=== PATIENT | female | born 1970 | race Two or more races ===

== ENCOUNTER 2016-12-31 20:23 | Emergency (ER) | payer MEDICAID ==
[~2016-12-31] VITALS: Ht 149.9 cm; Wt 115.2 kg
[2016-12-31 21:21] LABS: Basophils # (auto) 0.1 uL; Mean Corpuscular Volume 76.3 fL (80.0-100.0); Mean Platelet Volume 8.5 fL (6.9-10.8); Monocytes # (auto) 0.9 uL
[2016-12-31 21:23] LABS: Basophils % (auto) 1.3 % (0.0-2.0); Eosinophils # (auto) 0.3 uL; Hematocrit 38.3 % (36.0-46.0); Hemoglobin 12.5 g/dL (12.2-16.2); Lymphocytes # (auto) 3.2 uL; Lymphocytes % (auto) 37.1 % (10.0-50.0); Mean Corpuscular Hemoglobin 24.8 pg (28.0-32.0); Mean Corpuscular Hgb Conc. 32.5 g/dL (32.0-36.0); Monocytes % (auto) 10.3 % (0.0-12.0); Neutrophils % (auto) 47.3 % (37.0-80.0); Nucleated Red Blood Cells % 0.9 %; Platelet Count (auto) 248 10^3/uL (140-450); Red Cell Distribution Width 15.5 % (11.8-14.3); White Blood Cell 8.5 10^3/uL (4.4-10.8)
[2016-12-31 21:44] LABS: Albumin 2.8 g/dL (3.4-5.0); Alkaline Phosphatase 262 U/L (45-117); Anion Gap 6 (5-15); Aspartate Aminotransferase 129 U/L (15-37); BUN/Creatinine Ratio 15.7; Bilirubin, Total 0.7 mg/dL (0.2-1.0); Blood Urea Nitrogen 11 mg/dL (7-18); Calcium 7.6 mg/dL (8.5-10.1); Carbon Dioxide 28 mmol/L (21-32); Chloride 104 mmol/L (98-107); GFR African American 116 mL/min; GFR Non-African American 96 mL/min; Glucose 139 mg/dL (74-106); Sodium 138 mmol/L (136-145); Total Protein 7.1 g/dL (6.4-8.2)
[2016-12-31 21:54] LABS: Potassium 2.9 mmol/L (3.5-5.1)
[2017-01-01] MEDS ORDERED: cefTRIAXone 1GM/50ML D5W 50 ML IV ONE (04:15)
[2017-01-01 04:55] VITALS: BP 103/69
== END 2017-01-01 03:14 | disposition home or self-care (01) ==
LOC: ER 20:30
DX: J03.90 Acute tonsillitis, unspecified (principal)
CPT/HCPCS: 36415; 71010; 80053; 84484; 84702; 85025; 87070; 93005; 96365; 99285; J0696; J7040